=== PATIENT | male | born 1950 | race Caucasian/White ===

== ENCOUNTER 2017-05-12 09:04 | Inpatient (IN) | payer MEDICARE, OTHER ==
[2017-05-12] MEDS ORDERED: Ondansetron HCl/PF 4 MG/2 ML Vial IVP PRN (11:31)
[2017-05-12] MEDS ORDERED: Milk Of Magnesia 30 ML UDCUP PO PRN (11:31)
[2017-05-12] MEDS ORDERED: Diabetic Tussin 200 MG/10 ML UDCUP PO PRN (11:31)
[2017-05-12] MEDS ORDERED: Mag-Al 1200 mg/1200 mg/30 ML UDCUP PO PRN (11:31)
[2017-05-12] MEDS ORDERED: Loratadine 10 MG TAB PO PRN (11:31)
[2017-05-12] MEDS ORDERED: HYDROcodone/Acetaminophen 5/325 mg Tablet PO PRN (11:31)
[2017-05-12] MEDS ORDERED: Senokot 8.6 MG TAB PO PRN (11:31)
[2017-05-12] MEDS ORDERED: Acetaminophen 325 MG TAB PO PRN (11:31)
[2017-05-12] MEDS ORDERED: Loperamide HCl 2 MG CAP PO PRN (11:31)
[2017-05-12] MEDS ORDERED: Ondansetron ODT 4 MG TAB PO PRN (11:31)
[2017-05-12] MEDS ORDERED: Zolpidem Tartrate 5 MG TAB PO PRN (11:31)
[2017-05-12] MEDS ORDERED: Eucerin (Mineral Oil/Petrolatum,White) 30 gm Jar TOP PRN (11:31)
[2017-05-12 11:33] VITALS: BMI 26.7
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
[2017-05-12 13:53] LABS: Bilirubin Negative (Negative); Blood, Urine Negative (Negative); Glucose, Urine (Dipstick) Negative (Negative); Ketone, Urine Negative (Negative); Nitrite Negative (Negative); Protein, Urine (Dipstick) Negative (Neg-Trace)
[2017-05-12 13:58] LABS: Bacteria/HPF None Seen HPF (None Seen); Hyaline Casts/LPF 0-3 HYALINE CAST LPF (0-3 Hyaline); RBC/HPF 0-3 HPF (0-3); Squamous Epithelial None Seen HPF (0-3); WBC/HPF None Seen HPF (0-3)
[2017-05-12 14:07] LABS: Amphetamine Not Detected (NotDetected); Methadone Not Detected (NotDetected); Methamphetamine Not Detected (NotDetected)
--- NOTE | 2017-05-12 15:14 | ULT ---
BILATERAL CAROTID DUPLEX ULTRASOUND: DATE: 05/12/17 HISTORY: CVA. TECHNIQUE: Cox scale ultrasound with color flow and spectral Doppler imaging of the extracranial carotid arter y systems was performed bilaterally. FINDINGS: No significant plaque formation or intimal wall thickening is seen on either side. The peak systolic velocity in the right ICA measures 84 cm/second with an end-diastolic velocity of 14 cm/second and a systolic ratio of 1.30. The peak systolic velocity in the left ICA measures 80 cm/second with an end-diastolic velocity of 2 3 cm/second and a systolic ratio of 0.90. Flow in both vertebral arteries remains antegrade. IMPRESSION: No evidence of hemodynamically significant stenosis. POS: [facility]
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
[2017-05-12] MEDS ORDERED: Atorvastatin Calcium 10 MG TAB PO SCH (21:00)
[2017-05-12] MEDS: Famotidine 20 MG TAB PO SCH (21:43)
--- NOTE | 2017-05-12 23:35 | CON ---
DATE OF CONSULTATION: 05/12/2017 CONSULTING PHYSICIAN: Hospitalist Service. IMPRESSION: 1. Right cerebellar stroke. 2. Cocaine use. PLAN: 1. Continue aspirin and a statin. 2. Outpatient therapy. Mr. Shultz is a 66-year-old man with no significant past history. Over the last 2-3 days, he has no ticed that he has been unsteady on his feet. He did not really note a great deal of difficulty with the right arm. His family pointed out that his speech was a bit different. He was subsequently ad mitted, he had an MRI of the brain. The MRI revealed a right cerebellar infarct. His carotid Doppl er is unremarkable. His echocardiogram is pending. His lab was unremarkable other than a positive drug screen for cocaine. PAST MEDICAL HISTORY: Negative. ALLERGIES: None. SOCIAL HISTORY: Positive for alcohol and occasional cocaine use. FAMILY HISTORY: Noncontributory. REVIEW OF SYSTEMS: No complaint of headache, nausea, vomiting, vertigo, difficulty swallowing, ches t pain or shortness of breath. PHYSICAL EXAMINATION: GENERAL: He is a fairly healthy appearing gentleman, in no distress. HEENT: Pupils equal and reactive. Conjunctivae clear. Oropharynx clear. EXTREMITIES: No cyanosis noted. NEUROLOGIC: He is alert and appropriate. His speech is mildly dysarthric, but otherwise fluent. C ranial nerves are intact. Motor exam showed antigravity strength throughout. Cerebellar testing sh owed dysmetria on [id number] testing on the right side. He can walk, though a bit impaired. Se nsation is intact. SUMMARY: This is a 66-year-old man presented with a cerebellar stroke. He has normal EKG and lary p otherwise. I agree with your plan of management and I will be happy to follow up with him as an o utpatient if needed.
[2017-05-13 05:28] LABS: #Basophils 0.1 thou/uL (0.0-0.2); #Eosinphils 0.4 thou/uL (0.0-0.7); #Lymphocytes 3.4 thou/uL (1.20-3.40); #Neutrophils 4.2 thou/uL (1.40-6.50); %Basophils 1.1 % (0.0-1.0); %Eosinophils 4.2 % (0.0-10.0); %Monocytes 10.5 % (0.0-10.0); Hematocrit 44.1 % (42.0-52.0); Mean Platelet Volume 7.2 fL (7.4-10.4)
[2017-05-13 05:49] LABS: ALT (SGPT) 14 U/L (8-55); AST (SGOT) 19 U/L (5-34); Alkaline Phosphatase 43 U/L (40-150); Anion Gap 11 mmol/L (10-20); BUN (Urea Nitrogen) 16 mg/dL (8.4-25.7); Bilirubin, Total 0.6 mg/dL (0.2-1.2); Calc. Creatinine Clearance 96 mL/min (70-130); Carbon Dioxide 24 mmol/L (23-31); Chloride 105 mmol/L (98-107); Cholesterol 224 mg/dl (< 200 Desired); Estimated GFR-MDRD 84; Globulin 3.6 g/dL (2.4-3.5); LDL Cholesterol, Calculated 154 mg/dL; Protein, Total 7.3 g/dL (5.8-8.1)
[2017-05-13 07:56] VITALS: TEMP 98.7
[2017-05-13] MEDS: Famotidine 20 MG TAB PO SCH (08:28)
[2017-05-13] MEDS ORDERED: Lisinopril 5 MG TAB PO SCH (09:00)
[2017-05-13] MEDS ORDERED: Folic Acid 1 MG TAB PO SCH (09:00)
[2017-05-13] MEDS ORDERED: Cyanocobalamin (Vitamin B-12) 1,000 MCG TAB PO SCH (09:00)
[2017-05-13] MEDS ORDERED: Aspirin 325 mg Enteric Coated Tablet PO SCH (09:00)
[2017-05-13] MEDS ORDERED: Enoxaparin Sodium 40 MG/0.4 ML SYRINGE SC SCH (09:00)
--- NOTE | 2017-05-13 09:03 | PDOC.PN ---
- Subjective Encounter Start Date: 05/13/17 Encounter Start Time: 09:01 Mr. Shultz does not have any new complaints this morning. He still notes some difficulty with grabbing things and using his right hand. He also notes trouble with his balance as well. - Objective Resuscitation Status: Resuscitation Status FULL:Full Resuscitation MAR Reviewed: Yes Vital Signs & Weight: Vital Signs (12 hours) Temp Pulse Resp BP BP Pulse Ox 05/13/17 08:28 78 169/95 H 05/13/17 07:54 98.7 F 78 12 169/95 H 95 05/13/17 03:10 98.2 F 78 16 125/92 H 95 05/12/17 23:14 98.7 F 80 16 167/101 H 95 05/12/17 22:15 95 Weight Weight 186 lb 3.2 oz I&O: 05/12/17 05/13/17 05/14/17 06:59 06:59 06:59 Intake Total 720 Balance 720 Result Diagrams: 05/13/17 05:15 05/13/17 05:15 Phys Exam - Physical Examination HEENT: PERRLA Respiratory: no wheezing, no rales, no rhonchi, clear to auscultation bilateral Cardiovascular: RRR, no significant murmur, no rub Gastrointestinal: soft, non-tender, positive bowel sounds Musculoskeletal: no edema Dx/Plan (1) Acute cerebrovascular accident (CVA) of cerebellum Code(s): I63.9 - CEREBRAL INFARCTION, UNSPECIFIED Status: Acute (2) Hypertension Code(s): I10 - ESSENTIAL (PRIMARY) HYPERTENSION Status: Acute (3) Dyslipidemia Code(s): E78.5 - HYPERLIPIDEMIA, UNSPECIFIED Status: Acute (4) Cocaine abuse Code(s): F14.10 - COCAINE ABUSE, UNCOMPLICATED Status: Acute - Plan * Acute CVA- cerebellar- He has improved slightly * Echo results were noted- he has some systolic dysfunction- I have discussed with him that he may need Cardiology follow-up. Hr needs to follow-up with the stress test that was ordered by Dr. Cat. * stable for discharge home.
--- NOTE | 2017-05-13 09:41 | DIS ---
DATE OF ADMISSION: 05/12/2017 DATE OF DISCHARGE: 05/13/2017 PRIMARY CARE PHYSICIAN: Mary Cat M.D. DISCHARGE DISPOSITION: Home. PRIMARY DISCHARGE DIAGNOSES: 1. Acute cerebellar cerebrovascular accident. 2. Hypertension. 3. Dyslipidemia. 4. Cocaine abuse. DISCHARGE MEDICATIONS: Include aspirin 325 mg daily, Lipitor 10 mg at bedtime, and lisinopril 10 mg daily. PROCEDURES DONE DURING ADMISSION: The patient had an MRI of the brain in which demonstrated an acut e right cerebellar infarct. The patient also had bilateral carotid Dopplers which were negative for any flow limiting disease and had an echocardiogram which demonstrated an ejection fraction estimat ed at 45%-50%. There was some E to A flow reversal noted suggestive of diastolic dysfunction. CODE STATUS: FULL CODE. ALLERGIES: No known drug allergies. HOSPITAL COURSE: Mr. Shultz is a pleasant 66-year-old gentleman who presented to the emergency room with complaints of numbness and tingling on his right side as well as his right arm felt unsteady i n and it was difficult using his arm. He also was felt unsteady with his gait. He felt like he was drunk. He came to the emergency room and was found to have a cerebellar infarct. Urine drug scree n was also positive for cocaine and the patient did admit to using some cocaine, he says once a shon h or so. He also says that he does not want to go to a doctor and has not seen a physician in a [facility]; however, at the time of discharge, he did admit that Dr. Cat had scheduled him to have a stre ss test. He was evaluated by Neurology during his hospital stay, he underwent a carotid Doppler as well as echo. The carotid Doppler was essentially negative and echo showed some mild systolic dysfu nction as well as diastolic dysfunction. It is likely that this is due to uncontrolled hypertension . However, he was instructed to follow up with his primary care physician for the stress test which he had already planned and possibly even have an outpatient cardiology evaluation. There is no danilo dence of atrial fibrillation on his telemetry. He was placed on medication for blood pressure and f or dyslipidemia and subsequently discharged home on 05/13/2017.
[2017-05-13 11:25] VITALS: BP 162/93
--- NOTE | 2017-05-19 15:49 | PQF ---
HOLLEY STUART SALIM NOORJIBHAI MD [id number] [facility] [place] [id number] CLINICAL DOCUMENTATION CLARIFICATION FORM: POST DISCHARGE PLEASE FAX RESPONSE BACK TO [phone] Addendum to original discharge summary date: ____ Late entry note date: __ Relationship Cause and Effect General Query Date: 05/19/17 ATTN: Mesfin Bello MD The following CLINICAL INDICATORS - SIGNS / SYMPTOMS are present in the medical record: H & P Reason for Admission: Right-sided weakness RISKS: CVA HTN Dyslipidemia Alcohol and cocaine abuse TREATMENT: MRI Is patient's right side weakness Related to cva Not related to cva Other, please document Unknown _ Physician/Provider Signature Date Time (This form is maintained as a part of the permanent medical record) 2014 [employer] All Rights Reserved Obiorannamaria [email or web address]
== END 2017-05-13 11:48 | disposition home or self-care (01) | DRG 66 ==
LOC: ERS 09:04 → 2SE 10:38
PROVIDERS: ADMIT Internal Medicine; ATTEND Internal Medicine
PROC: B030ZZZ Magnetic Resonance Imaging (MRI) of Brain (ICD-10-PCS; principal; 2017-05-12)
DX: I63.9 Cerebral infarction, unspecified (principal); I10 Essential (primary) hypertension; E78.5 Hyperlipidemia, unspecified; F14.10 Cocaine abuse, uncomplicated
CPT/HCPCS: 36415; 70551; 71020; 80053; 80061; 80306; 81001; 83090; 85025; 86780; 93306; 93880; 99285; G8978-GP-CL; G8979-GP-CJ; G8987-GO-CJ; G8988-GO-CH; G8996-GN-CH; G8997-GN-CH; J1650

== ENCOUNTER 2017-05-18 15:08 | Observation (INO) | payer MEDICARE ==
[2017-05-18] MEDS ORDERED: Acetaminophen 325 MG TAB PO PRN (18:53)
[2017-05-18 20:41] VITALS: BMI 26.0
[2017-05-18] MEDS: Atorvastatin Calcium 10 MG TAB PO SCH (21:12)
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
[2017-05-19] MEDS ORDERED: Mag-Al Plus 1200 MG/1200 MG/120 MG/30 ML UDCUP PO PRN (02:09)
[2017-05-19] MEDS ORDERED: Amitriptyline HCl 10 MG TAB PO SCH (02:30)
[2017-05-19] MEDS: Lisinopril 5 MG TAB PO SCH (08:22)
[2017-05-19] MEDS: Aspirin 325 mg Enteric Coated Tablet PO SCH (08:23)
[2017-05-19] MEDS: Enoxaparin Sodium 40 MG/0.4 ML SYRINGE SC SCH (08:25)
[2017-05-19] MEDS: Meclizine HCl 12.5 MG TAB PO PRN (10:14)
--- NOTE | 2017-05-19 10:50 | PDOC.PN ---
- Subjective Encounter Start Date: 05/19/17 Encounter Start Time: 10:48 Mr. Shultz is complaining of feeling dixxy again this morning. He says he woke up feeling fine, but after an hour of taking Lisinopril he began feeling " drunk " again, and off balance. He feels that it is the medication making him feel this way. - Objective Resuscitation Status: Resuscitation Status FULL:Full Resuscitation MAR Reviewed: Yes Vital Signs & Weight: Vital Signs (12 hours) Temp Pulse Resp BP Pulse Ox 05/19/17 08:22 63 05/19/17 08:00 97.8 F 63 16 127/77 97 05/19/17 04:00 98.0 F 70 20 124/78 96 05/18/17 23:19 98.4 F 61 16 133/76 95 Weight Weight 181 lb 8 oz I&O: 05/18/17 05/19/17 05/20/17 06:59 06:59 06:59 Intake Total 180 Balance 180 Phys Exam - Physical Examination HEENT: PERRLA Respiratory: no wheezing, no rales, no rhonchi, clear to auscultation bilateral Cardiovascular: RRR, no significant murmur Gastrointestinal: soft, non-tender, positive bowel sounds Musculoskeletal: no edema Dx/Plan (1) Acute cerebrovascular accident (CVA) of cerebellum Code(s): I63.9 - CEREBRAL INFARCTION, UNSPECIFIED Status: Acute (2) Cocaine abuse Code(s): F14.10 - COCAINE ABUSE, UNCOMPLICATED Status: Acute (3) Dyslipidemia Code(s): E78.5 - HYPERLIPIDEMIA, UNSPECIFIED Status: Acute (4) Hypertension Code(s): I10 - ESSENTIAL (PRIMARY) HYPERTENSION Status: Acute - Plan * Dizziness- I suspect this is the residual effects of the CVA, and not the medication. He does not seem convinced of this, therefore will consult Neurology for a second opinion. * Will continue Lisinopril * Continue Statin, and aspirin * Will screen for Inpatient Rehab.
--- NOTE | 2017-05-19 18:01 | CON ---
DATE OF CONSULTATION: 05/19/2017 REFERRING PHYSICIAN: Hospitalist Service. The patient complains of feeling of lightheadedness or some vague clouding of his thinking since blane ng discharged home. He has also had some hiccups for the last 4 days. He has not noted any new foc al neurologic symptoms, but he finds that his right-sided difficulties are made a bit worse as a res ult of his sensation. He had a CT of the brain done on admission, which did not show any acute rossi ges. His blood pressure earlier today was 109/72 and this evening is 147/79, pulse rate remained in the 50s. He has been afebrile. His exam is otherwise only remarkable for some dysmetria on the ri ght and a wide base gait. He has no current labs. I suspect that his complaints may be related to the lisinopril, I agree with the holding of the [facility] cation to see if they improve by tomorrow. I do not see any acute neurologic changes compared to hi s prior exam.
[2017-05-19] MEDS: chlorproMAZINE HCl 25 MG TAB PO PRN (20:15)
[2017-05-19] MEDS: Atorvastatin Calcium 10 MG TAB PO SCH (20:15)
[2017-05-20] MEDS: chlorproMAZINE HCl 25 MG TAB PO PRN ×2 (01:28→20:16)
[2017-05-20] MEDS: Aspirin 325 mg Enteric Coated Tablet PO SCH (08:30)
[2017-05-20] MEDS: Enoxaparin Sodium 40 MG/0.4 ML SYRINGE SC SCH (08:30)
[2017-05-20] MEDS: Lisinopril 5 MG TAB PO SCH (10:06)
[2017-05-20] MEDS ORDERED: Sodium Chloride 0.9% 500 ML IV SCH (11:45)
--- NOTE | 2017-05-20 14:27 | PDOC.PN ---
- Subjective Encounter Start Date: 05/20/17 Encounter Start Time: 10:05 -: old records requested/rev Pt seen and examined earlier on rounds. chart reviewed in its entirety. This is my first visit with this patient No f/C,no N/V/D/C, no CP or SOB, dizziness improve,d but present when first standing up. Orthostatics requested and positive for orthostatic hypotension. IV fluids ordered, but pt apparently lost IV and refused new. PO intake pushed instead right side still weak, pt still dysarthric, but he says its slightly better. 10 point ROS performed and neg for all except as per HPI - Objective Resuscitation Status: Resuscitation Status FULL:Full Resuscitation MAR Reviewed: Yes Vital Signs & Weight: Vital Signs (12 hours) Temp Pulse Resp BP BP BP BP 05/20/17 11:43 97.7 F 64 18 05/20/17 11:35 97.7 F 64 18 05/20/17 10:33 66 05/20/17 10:06 74 104/66 05/20/17 09:59 106/73 119/67 114/67 05/20/17 08:05 97.3 F L 74 12 05/20/17 08:00 97.3 F L 74 12 05/20/17 03:23 97.7 F 68 12 BP BP BP BP Pulse Ox 05/20/17 11:43 118/72 95 05/20/17 11:35 118/72 95 05/20/17 10:33 102/64 96/68 114/68 05/20/17 10:06 05/20/17 09:59 126/70 05/20/17 08:05 104/66 94 L 05/20/17 08:00 05/20/17 03:23 103/65 95 Weight Weight 285 lb 11.2 oz I&O: 05/19/17 05/20/17 05/21/17 06:59 06:59 06:59 Intake Total 180 1680 240 Balance 180 1680 240 Radiology Reviewed by me: Yes EKG Reviewed by me: Yes Phys Exam - Physical Examination Constitutional: NAD HEENT: PERRLA, moist MMs, sclera anicteric, oral pharynx no lesions Neck: no nodes, no JVD, supple, full ROM Respiratory: no wheezing, no rales, no rhonchi, clear to auscultation bilateral Cardiovascular: RRR, no significant murmur, no rub Gastrointestinal: soft, non-tender, no distention, positive bowel sounds Musculoskeletal: no edema, pulses present Neurological: moves all 4 limbs right sided wekaness and dyscoordination, pt is dysarthric. Lymphatic: no nodes Psychiatric: normal affect, A&O x 3 Skin: no rash, normal turgor, cap refill <2 seconds Dx/Plan (1) Acute cerebrovascular accident (CVA) of cerebellum Code(s): I63.9 - CEREBRAL INFARCTION, UNSPECIFIED Status: Acute Comment: PT/ OT. IPR placement if approved. Aspirin. neuro following (2) Cocaine abuse Code(s): F14.10 - COCAINE ABUSE, UNCOMPLICATED Status: Chronic (3) Dyslipidemia Code(s): E78.5 - HYPERLIPIDEMIA, UNSPECIFIED Status: Chronic (4) Hypertension Code(s): I10 - ESSENTIAL (PRIMARY) HYPERTENSION Status: Chronic Qualifiers: Hypertension type: essential hypertension Qualified Code(s): I10 - Essential (primary) hypertension - Plan cont current plan of care, PT/OT, social scientist, speech therapy * .
[2017-05-20] MEDS: Meclizine HCl 12.5 MG TAB PO PRN (20:14)
[2017-05-20] MEDS: Atorvastatin Calcium 10 MG TAB PO SCH (20:14)
[2017-05-21] MEDS: Aspirin 325 mg Enteric Coated Tablet PO SCH (08:32)
[2017-05-21] MEDS: Enoxaparin Sodium 40 MG/0.4 ML SYRINGE SC SCH (08:32)
[2017-05-21] MEDS: Lisinopril 5 MG TAB PO SCH (10:28)
[2017-05-21 11:44] VITALS: TEMP 98.4
[2017-05-21 15:38] VITALS: BP 142/77
--- NOTE | 2017-05-22 09:24 | PDISCHARGE ---
Discharge - Patient Instructions Pre-Printed Education: Discharge Instructions: Taking Medicine Safely, Discharge Instructions for High Blood Pressure (Hypertension), Discharge Instructions for Stroke Care Plan Goals: AFTER HOSPITAL CARE PLAN and EDUCATION ISCHEMIC STROKE You have experienced an Ischemic Stroke, which occurs when arteries are blocked by blood clots or by the gradual build-up of plaque or other fatty deposits. Almost 85% of all strokes are ischemic. Risk Factors for Cerebrovascular Accident (Stroke) and TIA *Modifiable risk factors: [X] High blood pressure: The most important risk factor for stroke. This can be controlled with medications, a healthier diet and maintaining proper body weight. Your Blood Pressure: [ ] Heart disease: Persons with heart disease are twice as likely to suffer a stroke than people with normal hearts. [ ] Cigarette smoking: Stopping smoking reduces the risk of stroke, even in long-time smokers. [ ] High red blood count: Increased red blood cells thicken the blood and make clots more likely. "Blood thinners" may be a necessary treatment. [ ] Transient Ischemic Attacks (TIAs): These are strong predictors of stroke. [X] High blood cholesterol: Your LDL: [ ] Diabetes: Your Blood Sugar: [ ] Drug/Alcohol abuse [ ] Physical Inactivity [ ] Obesity [ ] Oral contraceptive use [X] High levels of stress *Non-Modifiable risk factors: Age: Older people are at greater risk than younger people. Gender: Men are at greater risk than women. Race: -Americans have a much greater risk of and disability. Prior Stroke Family History Take your Medications as Prescribed! Follow Up: It is critical that you follow up with your physician after discharge. Talk to them about risk factors, medications, diet and exercise. If you must cancel your appointment, it is very important to reschedule. Warning Signs of Stroke: -Sudden weakness/paralysis or numbness/decreased sensation of the face, arm or leg on one side of the body. -Sudden dimness or loss of vision, particularly in one eye. -Loss of speech, or trouble talking or understanding speech. -Impaired judgment and thought processes. -Impaired swallowing. -Sudden severe headaches with no apparent cause, often described as "the worst headache I've ever had." -Unexplained dizziness, unsteadiness or sudden falls, especially along with any of the previous symptoms. Any one of these signs could mean a stroke, so act F.A.S.T.: F stands for Face (Look for uneven smile). A stands for Arm (Check if one arm is weak). S stands for Speech (Listen for slurred speech). T stands for Time (Call 911 right away). Stroke is an emergency!! If you experience any of these symptoms, call 911 immediately. Treatment is more effective if started early on. Every minute counts!! TIME IS BRAIN! - Referrals and PCP Follow-Up Referrals and PCP Follow-Up: Mary Cat MD [Primary Care Provider] - Omar Hernandez MD [Active] -
--- NOTE | 2017-05-22 18:11 | PDOC.EVN ---
Event Note - Event Note Event Note: d/c summary dictated # [id number]
--- NOTE | 2017-05-22 18:24 | DIS ---
DATE OF ADMISSION: 05/18/2017 DATE OF DISCHARGE: 05/21/2017 DISCHARGE DIAGNOSES: 1. Status post cerebellar cerebrovascular accident. 2. Dizziness, improved. 3. Hypertension, controlled. 4. Dyslipidemia. 5. History of cocaine abuse. CONSULTATIONS: Neurology. DISCHARGE MEDICATION: Reviewed. Please see discharge MAR. DISCHARGE FACILITY: Acute inpatient rehabilitation. HOSPITAL COURSE: The patient was initially admitted from the ER with dizziness. The patient has hi story of being recently hospitalized for acute cerebellar CVA. He also had urine positive for cocai ne. At that time, the patient was discharged for outpatient rehab; however, the patient became extr azul dizzy and presented back to the emergency room. At this point, the patient was seen by Neurol marion and recommended inpatient rehabilitation. Also to continue with physical therapy as tolerated. The patient was noted to have low blood pressure at the time of admission of 109/72 for which his b lood pressure medications were withheld. His symptoms improved. CT scan head done in the emergency room was within normal limits. Patient was accepted to [facility] in [facility]. He was discharged by ambulance over there in stable condition on 05/21/2017.
== END 2017-05-21 19:19 ==
LOC: ERS 15:08 → T4-B 17:00 → 2SE 20:00
PROVIDERS: ADMIT Internal Medicine; ATTEND Internal Medicine
DX: R42 Dizziness and giddiness (principal); I10 Essential (primary) hypertension; E78.5 Hyperlipidemia, unspecified; F14.10 Cocaine abuse, uncomplicated; Z79.82 Long term (current) use of aspirin; Z79.899 Other long term (current) drug therapy; Z90.81 Acquired absence of spleen; Z86.73 Personal history of transient ischemic attack (TIA), and cerebral infarction without residual deficits
CPT/HCPCS: 93005; 96372 ×3; 97110; 97116 ×2; 97139 ×2; 97530 ×2; 99285; G0378 ×2; G8978; G8979; G8987; G8988; J1650; Q0161

== ENCOUNTER 2020-11-12 01:45 | Inpatient (IN) | payer MEDICARE ==
[2020-11-12 02:12] LABS: #Basophils 0.2 thou/uL (0.0-0.2); #Eosinphils 0.6 thou/uL (0.0-0.7); %Basophils 1.5 % (0.0-1.0); %Eosinophils 5.4 % (0.0-10.0); %Lymphocytes 42.5 % (21.0-51.0); %Monocytes 8.3 % (0.0-10.0); %Neutrophils 42.3 % (42.0-75.0); Hemoglobin 14.8 g/dL (14.0-18.0); Mean Corpuscular Hemoglobin 30.9 pg (27.0-31.0); Mean Corpuscular Volume 93.8 fL (78.0-98.0); Mean Platelet Volume 7.7 fL (7.4-10.4); Platelet Count 319 thou/uL (130-400); RBC Distribution Width 12.4 % (11.5-14.5); Red Blood Cell (RBC) Count 4.78 mill/uL (4.70-6.10); White Blood Cell (WBC) Count 11.8 thou/uL (4.8-10.8)
[2020-11-12 02:20] LABS: PTT 23.5 sec (22.9-36.1); Prothrombin Time 13.2 sec (12.0-14.7)
[2020-11-12 02:23] LABS: ALT (SGPT) 22 U/L (8-55); AST (SGOT) 19 U/L (5-34); Albumin 3.7 g/dL (3.4-4.8); Alkaline Phosphatase 53 U/L (40-110); Anion Gap 12 mmol/L (10-20); BUN (Urea Nitrogen) 20 mg/dL (8.4-25.7); Bilirubin, Total 0.5 mg/dL (0.2-1.2); Calc. Creatinine Clearance 0 mL/min (70-130); Calcium 8.5 mg/dL (7.8-10.44); Carbon Dioxide 27 mmol/L (23-31); Chloride 103 mmol/L (98-107); Globulin 3.4 g/dL (2.4-3.5); Glucose 150 mg/dL (80-115); Protein, Total 7.1 g/dL (5.8-8.1); Sodium 138 mmol/L (136-145)
[2020-11-12 03:00] LABS: Bilirubin Negative (Negative); Blood, Urine Negative (Negative); Clarity Clear (Clear); Glucose, Urine (Dipstick) Normal (Negative); Ketone, Urine Negative (Negative); Leukocyte Negative Leu/uL (Negative); Nitrite Negative (Negative); Protein, Urine (Dipstick) Negative (Neg-Trace); Specific Gravity, Urine 1.039 (1.002-1.036); Urobilinogen Normal mg/dL (Less than 2); pH, Urine 6.5 (5.0-9.0)
[2020-11-12 03:05] LABS: Acetaminophen Less than 6.0 mcg/mL (10.0-30.0); Alcohol Less than 10 mg/dL (Less than 10); Salicylate Less than 8.0 mg/dL (15.0-30.0)
[2020-11-12] MEDS ORDERED: Aspirin Chewable 81 MG TAB ONE (04:40)
[2020-11-12] MEDS ORDERED: Aspirin 300 MG Suppository ONE (04:59)
[2020-11-12] MEDS ORDERED: Ondansetron PF 4 MG/2 ML Vial ONE (05:00)
[2020-11-12 06:16] LABS: Amphetamine Detected (NotDetected); Barbiturates Screen Not Detected (NotDetected); Benzodiazepine Screen Not Detected (NotDetected); Cocaine Metabolite Screen Not Detected (NotDetected); Medtox Control Line Valid? VALID (VALID); Medtox Reader # READER 4; Methadone Not Detected (NotDetected); Methamphetamine Detected (NotDetected); Opiate Screen Not Detected (NotDetected); Oxycodone Screen Not Detected (NotDetected); Phencyclidine (PCP) Not Detected (NotDetected); THC/Cannabinoid Screen Not Detected (NotDetected); Tricyclic Screen Not Detected (NotDetected)
[2020-11-12 06:20] VITALS: BMI 27.3
[2020-11-12 08:37] LABS: Hemoglobin A1c 5.8 % (4.0-6.0)
[2020-11-12 08:41] LABS: Cardiac Risk 3.4 (Less than 4.5)
[2020-11-12] MEDS ORDERED: Iopamidol-370 76% 500 ML 1 ML ONE (09:44)
[2020-11-12] MEDS: Famotidine/PF 20 mg/2ml Vial SLOW IVP SCH ×2 (10:39→20:43)
[2020-11-12] MEDS: Aspirin 81 mg Enteric Coated Tablet PO SCH (10:40)
[2020-11-12] MEDS: Enoxaparin Sodium 40 MG/0.4 ML SYRINGE SC SCH (10:40)
[2020-11-12] MEDS ORDERED: Promethazine HCl 12.5 MG in Sodium Chloride 0.9% 50 ML IVPB PRN (11:09)
[2020-11-12] MEDS ORDERED: Acetaminophen 325 MG TAB PO PRN (17:24)
[2020-11-12] MEDS: Atorvastatin Calcium 40 MG TAB PO SCH (20:43)
[2020-11-13 04:51] LABS: SARS-CoV-2 PCR by NAA Not Detected (NotDetected)
[2020-11-13] MEDS: Famotidine/PF 20 mg/2ml Vial SLOW IVP SCH ×2 (09:46→20:22)
[2020-11-13] MEDS: Aspirin 81 mg Enteric Coated Tablet PO SCH (09:46)
[2020-11-13] MEDS: Enoxaparin Sodium 40 MG/0.4 ML SYRINGE SC SCH (09:46)
[2020-11-13 11:16] LABS: #Basophils 0.1 thou/uL (0.0-0.2); #Eosinphils 0.1 thou/uL (0.0-0.7); #Neutrophils 7.5 thou/uL (1.40-6.50); %Basophils 0.4 % (0.0-1.0); %Eosinophils 1.2 % (0.0-10.0); %Lymphocytes 31.4 % (21.0-51.0); %Monocytes 7.9 % (0.0-10.0); %Neutrophils 59.1 % (42.0-75.0); Hemoglobin 15.4 g/dL (14.0-18.0); Mean Corpuscular HGB CONC 32.9 g/dL (32.0-36.0); Mean Corpuscular Hemoglobin 31.1 pg (27.0-31.0); Mean Corpuscular Volume 94.6 fL (78.0-98.0); Mean Platelet Volume 7.9 fL (7.4-10.4); Platelet Count 317 thou/uL (130-400); RBC Distribution Width 12.7 % (11.5-14.5); Red Blood Cell (RBC) Count 4.95 mill/uL (4.70-6.10); White Blood Cell (WBC) Count 12.7 thou/uL (4.8-10.8)
[2020-11-13] MEDS: Atorvastatin Calcium 40 MG TAB PO SCH (20:22)
[2020-11-13] MEDS: Metoprolol Tartrate 25 MG TAB PO SCH (20:31)
[2020-11-14] MEDS: Aspirin Chewable 81 MG TAB PO SCH (08:26)
[2020-11-14] MEDS: Famotidine/PF 20 mg/2ml Vial SLOW IVP SCH (08:27)
[2020-11-14] MEDS: Clopidogrel Bisulfate 75 MG TAB PO SCH (08:27)
[2020-11-14] MEDS: Enoxaparin Sodium 40 MG/0.4 ML SYRINGE SC SCH (08:27)
[2020-11-14] MEDS: Fish Oil 1,000 MG CAP PO SCH (08:27)
[2020-11-14] MEDS: Metoprolol Tartrate 25 MG TAB PO SCH ×2 (08:27→20:13)
[2020-11-14] MEDS: Tamsulosin HCl 0.4 MG CAP PO SCH (08:28)
[2020-11-14 08:33] LABS: #Basophils 0.1 thou/uL (0.0-0.2); #Eosinphils 0.3 thou/uL (0.0-0.7); #Lymphocytes 4.7 thou/uL (1.20-3.40); #Monocytes 1.2 thou/uL (0.11-0.59); #Neutrophils 6.1 thou/uL (1.40-6.50); %Basophils 0.5 % (0.0-1.0); %Eosinophils 2.1 % (0.0-10.0); %Lymphocytes 38.3 % (21.0-51.0); %Monocytes 9.6 % (0.0-10.0); %Neutrophils 49.5 % (42.0-75.0); Mean Corpuscular HGB CONC 32.3 g/dL (32.0-36.0); Mean Corpuscular Hemoglobin 30.6 pg (27.0-31.0); Mean Corpuscular Volume 94.9 fL (78.0-98.0); Mean Platelet Volume 7.9 fL (7.4-10.4); Platelet Count 314 thou/uL (130-400); RBC Distribution Width 12.7 % (11.5-14.5); Red Blood Cell (RBC) Count 5.24 mill/uL (4.70-6.10); White Blood Cell (WBC) Count 12.3 thou/uL (4.8-10.8)
[2020-11-14] MEDS: Famotidine 20 MG TAB PO SCH ×2 (09:49→20:12)
[2020-11-14] MEDS: Atorvastatin Calcium 40 MG TAB PO SCH (20:12)
[2020-11-15] MEDS: Fish Oil 1,000 MG CAP PO SCH (08:16)
[2020-11-15] MEDS: Aspirin Chewable 81 MG TAB PO SCH (08:16)
[2020-11-15] MEDS: Clopidogrel Bisulfate 75 MG TAB PO SCH (08:16)
[2020-11-15] MEDS: Metoprolol Tartrate 25 MG TAB PO SCH (08:16)
[2020-11-15] MEDS: Tamsulosin HCl 0.4 MG CAP PO SCH (08:17)
[2020-11-15] MEDS: Enoxaparin Sodium 40 MG/0.4 ML SYRINGE SC SCH (08:17)
[2020-11-15] MEDS: Famotidine 20 MG TAB PO SCH (08:17)
[2020-11-15 08:20] VITALS: BP 126/85; TEMP 97.3
== END 2020-11-15 11:00 | disposition home or self-care (01) | DRG 65 ==
LOC: ERS 01:45 → 2SE 04:47 → OBSVTOIN 04:47 → 2SW 20:06
PROVIDERS: ADMIT Student in an Organized Health Care Education/Training Program; ATTEND Internal Medicine
DX: I63.541 Cerebral infarction due to unspecified occlusion or stenosis of right cerebellar artery (principal); G81.91 Hemiplegia, unspecified affecting right dominant side; R47.01 Aphasia; Z20.822 Contact with and (suspected) exposure to COVID-19; E78.5 Hyperlipidemia, unspecified; I10 Essential (primary) hypertension; I25.10 Atherosclerotic heart disease of native coronary artery without angina pectoris; R47.81 Slurred speech; F14.10 Cocaine abuse, uncomplicated; I48.91 Unspecified atrial fibrillation; F15.10 Other stimulant abuse, uncomplicated; R29.701 NIHSS score 1; D72.829 Elevated white blood cell count, unspecified; I65.03 Occlusion and stenosis of bilateral vertebral arteries; Z86.73 Personal history of transient ischemic attack (TIA), and cerebral infarction without residual deficits; Z79.899 Other long term (current) drug therapy; Z79.82 Long term (current) use of aspirin; Z79.02 Long term (current) use of antithrombotics/antiplatelets
CPT/HCPCS: 36415; 36416; 51701; 70450; 70496; 70498; 70551; 71045; 80053; 80061; 80306; 80307; 81003; 83036; 84145; 85025; 85610; 85730; 87635; 93005; 93306; 95712; 95819; 95957; 96374; G0378; J1650; J2405; J2550; J2997; Q9967; S0028; U0003; U0005

== ENCOUNTER 2023-02-24 09:31 | Emergency (ER) | payer MEDICARE ==
[2023-02-24 09:56] LABS: #Basophils 0.1 thou/uL (0.0-0.2); #Eosinphils 0.8 thou/uL (0.0-0.7); %Basophils 1.3 % (0.0-1.0); %Eosinophils 8.7 % (0.0-10.0); %Lymphocytes 46.8 % (21.0-51.0); %Monocytes 10.6 % (0.0-10.0); %Neutrophils 32.4 % (42.0-75.0); Mean Corpuscular HGB CONC 33.9 g/dL (32.0-36.0); Mean Corpuscular Hemoglobin 29.9 pg (27.0-31.0); Mean Corpuscular Volume 88.2 fl (78.0-98.0); Mean Platelet Volume 10.2 fL (7.4-10.4); Platelet Count 326 10x3/uL (130-400); Red Blood Cell (RBC) Count 5.01 mill/uL (4.70-6.10); White Blood Cell (WBC) Count 9.2 10x3/uL (4.8-10.8)
[2023-02-24 10:20] LABS: ALT (SGPT) 20 U/L (8-55); AST (SGOT) 26 U/L (5-34); Albumin 3.9 g/dL (3.4-4.8); Alkaline Phosphatase 68 U/L (40-110); Anion Gap 14 mmol/L (10-20); BUN (Urea Nitrogen) 22 mg/dL (8.4-25.7); Bilirubin, Total 0.6 mg/dL (0.2-1.2); CK (CPK) 247 U/L (30-200); Calc. Creatinine Clearance 0 mL/min (70-130); Calcium 9.3 mg/dL (7.8-10.44); Carbon Dioxide 23 mmol/L (23-31); Chloride 105 mmol/L (98-107); Estimated GFR 74; Globulin 3.8 g/dL (2.4-3.5); Glucose 113 mg/dL (83-110); Protein, Total 7.7 g/dL (5.8-8.1); Sodium 138 mmol/L (136-145)
[2023-02-24 11:03] LABS: Acetaminophen Less than 10 mcg/mL (10.0-30.0); Alcohol Less than 10.0 mg/dL (Less than 10); Salicylate Less than 8.0 mg/dL (15.0-30.0)
[2023-02-24 11:20] LABS: Amphetamine Detected (NotDetected); Barbiturates Screen Not Detected (NotDetected); Benzodiazepine Screen Not Detected (NotDetected); Cocaine Metabolite Screen Not Detected (NotDetected); Methadone Not Detected (NotDetected); Methamphetamine Detected (NotDetected); Opiate Screen Not Detected (NotDetected); Oxycodone Screen Not Detected (NotDetected); Phencyclidine (PCP) Not Detected (NotDetected); THC/Cannabinoid Screen Not Detected (NotDetected); Tricyclic Screen Not Detected (NotDetected)
[2023-02-24 11:34] LABS: Bacteria/HPF None Seen HPF (None Seen); Bilirubin Negative (Negative); Blood, Urine Negative (Negative); CAUTI Indications for Culture Alt mental st,lethar; Clarity Clear (Clear); Glucose, Urine (Dipstick) Normal (Negative); Ketone, Urine Negative (Negative); Leukocyte Negative Leu/uL (Negative); Nitrite Negative (Negative); Protein, Urine (Dipstick) 20 mg/dL (Neg-Trace); RBC/HPF 0-3 HPF (0-3); Specific Gravity, Urine 1.032 (1.002-1.036); Squamous Epithelial None Seen HPF (0-3); Urobilinogen Normal mg/dL (Less than 2); WBC/HPF 0-3 HPF (0-3); pH, Urine 5.5 (5.0-9.0)
[2023-02-24 11:36] LABS: Urine Culture Reflex No No
== END 2023-02-24 12:20 | disposition home or self-care (01) ==
LOC: ERS 09:31
DX: F15.10 Other stimulant abuse, uncomplicated (principal); R44.3 Hallucinations, unspecified; F12.10 Cannabis abuse, uncomplicated; Z79.82 Long term (current) use of aspirin
CPT/HCPCS: 36415; 70450; 71045; 80053; 80306; 80307; 81001; 82550; 85025; 93005